=== PATIENT | male | born 1975 | race Caucasian/White ===

== ENCOUNTER → 2024-06-15 | Outpatient (CLI) | payer BC ==
[~2024-06-15] MED LIST: AMBIEN 10MG10 MG PO; Barium Sulfate 2% Oral Susp 450 ML X 2 BOTTLES PO SCH; Iohexol 300 - 100 ML VIAL IV ONE; KEPPRA 500MG500 MG PO; NS 100 ML IV SCH; THIAMINE 1100 MG/TAB PO; ZOLOFT 50MG50 MG PO
== END ==
LOC: COL.RAD 07:50
DX: K59.39 Other megacolon (principal); D64.9 Anemia, unspecified; D69.6 Thrombocytopenia, unspecified; K70.10 Alcoholic hepatitis without ascites
CPT/HCPCS: Q9967